=== PATIENT | male | born 1990 | race African-American/Black ===

== ENCOUNTER → 2019-04-17 | Emergency (ER) | payer MEDICAID | LOC: ER 15:10 ==

== ENCOUNTER 2019-07-16 08:21 | Emergency (ER) | payer MEDICAID ==
[~2019-07-16] VITALS: Ht 188 cm; Wt 88.0 kg
[~2019-07-16 08:21] MED LIST: AC325T PO; ACHD5005 PO; ALPR0.5T PO; AMOX500C2 PO; AMPH15TA PO; ATOM40CA3 PO; AZIT-21 PO; BENZ100C18 PO; CEFD300C16 PO; CEPH-507 PO; CEPH500C PO; CITA10TA70 PO; HYDR-2890 PO; HYDR-3720 PO; HYDR1TAB PO; IBUP-1780 PO; METH4TAB PO; NAPR-243 PO; SULF1TAB35 PO; TRAM50TA2 PO
[2019-07-16] MEDS ORDERED: KETOROLAC 30 MG/ML VIAL IM ONE (08:45)
[2019-07-16] MEDS ORDERED: LIDOCAINE 2% VISCOUS 15 ML UDC PO ONE (08:45)
--- NOTE | 2019-07-16 09:03 | ED EENT ---
History of Present Illness General Chief Complaint: Dental Problems/Pain Stated Complaint: DENTAL PAIN Nursing Triage Note: Pt c/o R upper dental pain. Pt reports broken tooth with an exposed nerve. Pt reports going to walk in clinic and was put on PCN. Pt reports trying to get an appointment with a dentist, but reports dentist will not see pt until pt has been on antibiotic for 72 hours. Pt reports today is third day on PCN. Pt reports taking tylenol and ibuporphen for pain. Pt requesting to have tooth pulled and pain shot. Source: patient Exam Limitations: no limitations History of Present Illness Date Seen by Provider: Jul 16, 2019 Time Seen by Provider: 08:40 Initial Comments This 29 year old young man presents to the ER with complaints of right upper dental pain he has multiple fractured and severely eroded teeth. He was seen recently at an urgent care clinic and was prescribed penicillin. He has not yet been seen by the dentist. He would like some help managing pain until he has follow-up with the dentist. He has tried anesthetic gel and ibuprofen. This has given him insufficient relief. He is specifically requesting an injection for pain. He denies fevers Allergies and Home Medications Allergies Coded Allergies: No Known Drug Allergies (Unverified , 01/10/12) Home Medications Alprazolam 0.5 Mg Tablet, 0.5 MG PO Q8H PRN for ANXIETY, (Reported) Amphet Asp/Amphet/D-Amphet 15 Mg Tablet, 15 MG PO DAILY, (Reported) Atomoxetine Hcl 40 Mg Capsule, 40 MG PO DAILY, (Reported) Cephalexin 500 Mg Capsule, 500 MG PO TID Prescribed by: TIFFANIE DOWNEY on 04/17/191558 Cephalexin Monohydrate 500 Mg Capsule, 1 EACH PO TID Prescribed by: STEPHAN TATE on 06/26/14 1636 Citalopram Hydrobromide 10 Mg Tablet, 30 MG PO DAILY, (Reported) Hydrocodone Bit/Acetaminophen 1 Tab Tab, 1 EACH PO Q4-6HR PRN for PAIN-MODERATE Prescribed by: TIFFANIE DOWNEY on 04/17/191558 Ibuprofen 800 Mg Tablet, 800 MG PO Q8H PRN for PAIN Prescribed by: TIFFANIE DOWNEY on 04/17/19 155 Naproxen 500 Mg Tablet, 1 EACH PO BID PRN for PAIN FOR PAIN Prescribed by: STEPHAN TATE on 06/26/14 1636 Sulfamethoxazole/Trimethoprim 1 Each Tablet, 1 EACH PO BID Prescribed by: TIFFANIE DOWNEY on 04/17/19 1559 Patient Home Medication List Home Medication List Reviewed: Yes Review of Systems Review of Systems Constitutional: no symptoms reported Eyes: No Symptoms Reported Ears: No Symptoms Reported Nose: no symptoms reported Mouth: see HPI Throat: no symptoms reported Respiratory: no symptoms reported Cardiovascular: no symptoms reported Gastrointestinal: no symptoms reported Musculoskeletal: no symptoms reported Skin: no symptoms reported Neurological: No Symptoms Reported Hematologic/Lymphatic: No Symptoms Reported Past Kbdtszy-Jvxtez-Uamgwl Hx Past Med/Social Hx: Reviewed Nursing Past Med/Soc Hx Patient Social History Alcohol Use: Denies Use Recreational Drug Use: Yes Drug of Choice: former maijuana, meth use Smoking Status: Former Smoker Type Used: Cigarettes 2nd Hand Smoke Exposure: No Recent Foreign Travel: No Contact w/Someone Who Travel: No Recent Infectious Disease Expo: No Recent Hopitalizations: No Physical Abuse: No Sexual Abuse: No Immunizations Up To Date Tetanus Booster (TDap): Less than 5yrs Date of Influenza Vaccine: Oct 13, 2013 Past Medical History Surgeries: Yes (L eye enucleation) Respiratory: No Cardiac: No Neurological: No Reproductive Disorders: No Gastrointestinal: No Musculoskeletal: No Endocrine: No 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 oz. 87.775298yg; BMI Method:Stated General Appearance: WD/WN, no apparent distress Eyes: right eye normal inspection; left eye other (absent) Ears: bilateral ear auricle normal, bilateral ear canal normal, bilateral ear TM normal Nose: normal inspection Mouth/Throat: pharynx normal, other (multiple chipped and severely eroded teeth with some tenderness in the right upper premolars. 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, no motor/sensory deficits, alert, normal mood/affect, oriented x 3 Skin: normal color, warm/dry Progress/Results/Core Measures Results/Orders My Orders Orders - QUANG DIALLO MD Ketorolac Injection (Toradol Injection) (07/16/19 08:45) Lidocaine 2% Viscous 15 Ml (Xylocaine Vi (07/16/19 08:45) Medications Given in ED Current Medications Medications Dose Ordered Sig/Zhanna Route Start Time Stop Time Status Last Admin Dose Admin Ketorolac Tromethamine 30 mg ONCE ONCE IM 07/16/19 08:45 07/16/19 08:46 DC 07/16/19 08:56 30 MG Lidocaine HCl 5 ml ONCE ONCE PO 07/16/19 08:45 07/16/19 08:46 DC 07/16/19 08:55 5 ML Vital Signs/I&O 07/16/19 07/16/19 08:28 09:15 Temp 98.1 98.1 Pulse 85 85 Resp 18 18 B/P (MAP) 153/102 (119) 148/84 (105) Pulse Ox 100 100 O2 Delivery Room Air Room Air Blood Pressure Mean: 119 Progress Progress Note : Progress Note She received a Toradol injection. Anesthetic gauze pads were prepared and dispensed. Cautions regarding gauze pad use were given. Departure Impression Primary Impression: Pain, dental Additional Impressions: Dental decay Tooth fracture Qualified Codes: S02.5XXA - Fracture of tooth (traumatic), initial encounter for closed fracture Disposition: 01 HOME, SELF-CARE Condition: Improved Departure-Patient Inst. Decision time for Depature: 08:59 Referrals: NO,LOCAL PHYSICIAN (PCP/Family) Primary Care Physician Patient Instructions: Fractured Tooth (DC), Tooth Decay, Adult, Dental Pain Add. Discharge Instructions: Complete your antibiotics as prescribed and follow-up with a dentist as soon as possible. For pain you may take ibuprofen up to 600 mg every 6 hours and Tylenol (acetaminophen) up to 1000 mg every 6 hours as needed. You may also use the anesthetic gauze pads as needed. Please use anesthetic gauze pads with caution as they will numb your mouth, tongue, and throat. Eat and drink very carefully after use. DO NOT FALL ASLEEP WITH GAUZE PADS IN YOUR MOUTH as doing so be a choking risk. Return to care if you have worsening symptoms, especially if you develop fevers over 100. Pressure or teeth gently with a soft bristle toothbrush at least twice daily. All discharge instructions reviewed with patient and/or family. Voiced understanding. QUANG DIALLO MD Jul 16, 2019 09:03
[2019-07-16 09:15] VITALS: BP 148/84
== END 2019-07-16 09:15 | disposition home or self-care (01) ==
LOC: EDUNIT# 08:21 → ER 08:22
DX: S02.5XXA Fracture of tooth (traumatic), initial encounter for closed fracture (principal); K02.9 Dental caries, unspecified; Z87.891 Personal history of nicotine dependence; X58.XXXA Exposure to other specified factors, initial encounter
CPT/HCPCS: 99283

== ENCOUNTER 2021-09-25 06:53 | Emergency (ER) | payer MEDICAID ==
[~2021-09-25] VITALS: Ht 187 cm; Wt 90.0 kg
[2021-09-25 06:53] VITALS: BP_DIAS 106
[~2021-09-25 06:53] MED LIST changes: -SULF1TAB35 PO; +SULF1TAB38 PO
--- NOTE | 2021-09-25 07:17 | ED Psychosocial ---
General Chief Complaint: Overdose Stated Complaint: DETOX Nursing Triage Note: ARRIVED VIA EMS FROM [facility]. PT IS WANTING DETOXED FROM METH WHICH HE SMOKES. PT CONCERNED ABOUT A SUBSTANCE IN HIS WATTER BOTTLE. Source: patient Exam Limitations: no limitations History of Present Illness Date Seen by Provider: Sep 25, 2021 Time Seen by Provider: 07:03 Initial Comments Patient is a 31-year-old male who presents to the emergency department by EMS desiring "detox". Patient states he has had issues with smoking methamphetamine and using marijuana for years. He has been through rehab multiple times. He states he last attended rehab 2 to 3 years ago in [place]. States that he has been using now for "a while". States last use was about 3 to 4 hours ago. He states that he does not have a safe place to go and would like detox. He denies any recent illnesses such as fever, chills, cough or congestion. No abdominal pain, GI or symptoms. He presents with a water bottle in his possession and is concerned that somebody might of "put something in it". He would like to be tested for any substances. He denies suicidal or homicidal ideation. He denies auditory and visual hallucinations. He states he ran out of his medications recently and lists for five different ones. He has a provider through [facility]. Patient states that he was under the impression that our facility would provide detox/rehabilitative services. I advised him the closest facility was [facility]. I offered to call and see with their intake required. He seems agreeable. Patient does not appear acutely intoxicated. He was found outside at [place] this morning by police and brought in by EMS. All other review of systems reviewed and negative except as stated. Timing/Duration: getting worse Severity: moderate Associated Symptoms: anxiety, other (paranoia) Allergies and Home Medications Allergies Coded Allergies: No Known Drug Allergies (Unverified , 01/10/12) Patient Home Medication List Home Medication List Reviewed: Yes Alprazolam (Xanax) 0.5 Mg Tablet, 0.5 MG PO Q8H PRN for ANXIETY, (Reported) Entered as Reported by: RAFA CHEEMA on 12/10/13 0200 Amphet Asp/Amphet/D-Amphet (Adderall 15 Mg Tablet) 15 Mg Tablet, 15 MG PO DAILY, (Reported) Entered as Reported by: CAROL CASTILLO on 06/26/14 1621 Atomoxetine Hcl (Strattera) 40 Mg Capsule, 40 MG PO DAILY, (Reported) Entered as Reported by: CAROL CASTILLO on 06/26/14 1621 Cephalexin (Keflex) 500 Mg Capsule, 500 MG PO TID Prescribed by: TIFFANIE DOWNEY on 04/17/19 155 Cephalexin Monohydrate (Cephalexin) 500 Mg Capsule, 1 EACH PO TID Prescribed by: STEPHAN TATE on 06/26/14 1636 Citalopram Hydrobromide (Celexa) 10 Mg Tablet, 30 MG PO DAILY, (Reported) Entered as Reported by: BAILEY NAYAK on 07/17/13 0737 Hydrocodone Bit/Acetaminophen (Lortab 5 Mg Tablet) 1 Tab Tab, 1 EACH PO Q4-6HR PRN for PAIN-MODERATE Prescribed by: TIFFANIE DOWNEY on 04/17/19 155 Ibuprofen (Ibuprofen) 800 Mg Tablet, 800 MG PO Q8H PRN for PAIN Prescribed by: TIFFANIE DOWNEY on 04/17/19 155 Naproxen (Naprosyn) 500 Mg Tablet, 1 EACH PO BID PRN for PAIN Prescribed by: STEPHAN TATE on 06/26/14 1636 Sulfamethoxazole/Trimethoprim (Bactrim Ds Tablet) 1 Each Tablet, 1 EACH PO BID Prescribed by: TIFFANIE DOWNEY on 04/17/191558 Review of Systems Constitutional: see HPI EENTM: no symptoms reported Respiratory: no symptoms reported Cardiovascular: no symptoms reported Gastrointestinal: no symptoms reported Genitourinary: no symptoms reported Musculoskeletal: no symptoms reported Skin: no symptoms reported Psychiatric/Neurological: Anxiety, Emotional Problems All Other Systems Reviewed Negative Unless Noted: Yes Past Ljrmqwy-Utenjr-Cklcgu Hx Patient Social History Smoking Status: Current Everyday Smoker Substance use?: Yes Substance type: Methamphetamine, Marijuana Alcohol Use?: No Immunizations Up To Date Tetanus Booster (TDap): Less than 5yrs Second COVID19 Vaccination Jamel: YES- UNKNONWN COVID19 Vaccine 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 oz. 87.900380ml; 25.00 BMI Method:Stated General Appearance: WD/WN, no apparent distress HEENT: PERRL/EOMI Neck: full range of motion Respiratory: lungs clear, normal breath sounds, no respiratory distress, no accessory muscle use Cardiovascular: regular rate, rhythm, tachycardia Extremities: normal range of motion, normal inspection Neurologic/Psychiatric: no motor/sensory deficits, alert, normal mood/affect, oriented x 3 Appearance/Memory: appropriate appearance, appropriate insight, neat, no memory impairment Behavior/Eye Contact: cooperative, good eye contact, normal speech Thoughts/Hallucinations: normal thought pattern, other (paranoid that someone has "put something in his water bottle" and "would like it tested") Progress/Results/Core Measures Results/Orders Lab Results Laboratory Tests Test 09/25/21 07:07 Range/Units Urine Opiates Screen NEGATIVE NEGATIVE Urine Oxycodone Screen NEGATIVE NEGATIVE Urine Methadone Screen NEGATIVE NEGATIVE Urine Propoxyphene Screen NEGATIVE NEGATIVE Urine Barbiturates Screen NEGATIVE NEGATIVE Ur Tricyclic Antidepressants Screen NEGATIVE NEGATIVE Urine Phencyclidine Screen NEGATIVE NEGATIVE Urine Amphetamines Screen POSITIVE H NEGATIVE Urine Methamphetamines Screen POSITIVE H NEGATIVE Urine Benzodiazepines Screen NEGATIVE NEGATIVE Urine Cocaine Screen NEGATIVE NEGATIVE Urine Cannabinoids Screen POSITIVE H NEGATIVE My Orders Orders - DAMARIS GARCIA MD Drug Screen Stat (Urine) (09/25/21 07:11) General/Regular (09/25/21 Breakfast) Vital Signs/I&O 09/25/21 06:53 Temp 37.2 Pulse 117 Resp 16 B/P (MAP) 138/106 (117) Pulse Ox 99 O2 Delivery Room Air Blood Pressure Mean: 117 Progress Progress Note : Time: 07:20 Progress Note I called and spoke with a lady (Mile) at [facility] about criteria for e ntering "detox" through [facility], She advised me that Olivia would have to call the main office at [facility] ([phone]) to get a Drug and Alcohol assessment in order to be assessed for detox treatment. They do not accept patients directly from the ED. Patient denies and SI of HI and denies any acute psychotic symptomatology. I do not believe that he has any criteria that would meet indications for acute psych eval or placement. He has no medical emergencies at this time. Patient has had a urine drug screen. He is given a meal tray. No clinical or objective findings to require further evaluation at this time. He is, again, not actively psychotic. Not homicidal or suicidal. Departure Impression Primary Impression: Methamphetamine use Disposition: 01 HOME, SELF-CARE Condition: Stable Departure-Patient Inst. Decision time for Depature: 07:33 Referrals: [facility] CARLOS,LOCAL PHYSICIAN (PCP) Primary Care Physician Patient Instructions: ALCOHOL AND SUBSTANCE ABUSE Add. Discharge Instructions: You will need to call [facility] at [phone] for an alcohol/substance use intake appointment to be screened for meth detox. We do not do drug detox here at the hospital. You also need to follow up with [facility] for evaluation and to get your psychiatric medications refilled. [address] [place] [address] If you have any other new, concerning or emergent symptoms, please come back to the Emergency Department to be re-evaluated. DAMARIS GARCIA MD Sep 25, 2021 07:17
[2021-09-25 07:28] LABS: AMPHETAMINE SCREEN, URINE POSITIVE (NEGATIVE); BARBITURATE SCREEN URINE NEGATIVE (NEGATIVE); BENZODIAZEPINES SCREEN URINE NEGATIVE (NEGATIVE); CANNABINOID SCREEN, URINE POSITIVE (NEGATIVE); COCAINE SCREEN URINE NEGATIVE (NEGATIVE); METHADONE STAT NEGATIVE (NEGATIVE); METHAMPHETAMINE SCREEN URINE S POSITIVE (NEGATIVE); OPIATE SCREEN URINE NEGATIVE (NEGATIVE); OXYCODONE STAT NEGATIVE (NEGATIVE); PROPOXYPHENE STAT NEGATIVE (NEGATIVE); TRICYCLIC ANTIDEPRESSANTS SCRE NEGATIVE (NEGATIVE)
[2021-09-25 08:03] VITALS: BP_SYST 109
== END 2021-09-25 08:03 | disposition home or self-care (01) ==
LOC: EDUNIT# 06:53 → ER 06:55
DX: F15.90 Other stimulant use, unspecified, uncomplicated (principal); F17.200 Nicotine dependence, unspecified, uncomplicated
CPT/HCPCS: 80306; 99283

== ENCOUNTER 2021-09-30 18:40 | Observation (INO) | payer MEDICAID ==
[~2021-09-30] VITALS: Ht 182.8 cm; Wt 90.1 kg
[2021-09-30] MEDS ORDERED: NS IV 1000 ML 1,000 ML IV SCH ×2 (19:00→19:30)
[2021-09-30 19:23] LABS: BASOPHILS % (AUTO) 0 % (0-10); EOSINOPHILS # (AUTO) 0.1 10^3/uL (0.0-0.3); EOSINOPHILS % (AUTO) 1 % (0-10); HEMATOCRIT 36 % (40-54); HEMOGLOBIN 12.7 g/dL (13.3-17.7); LYMPHOCYTES # (AUTO) 1.8 10^3/uL (1.0-4.0); LYMPHOCYTES % (AUTO) 17 % (12-44); MEAN CORPUSCULAR HEMOGLOBIN 30 pg (25-34); MEAN CORPUSCULAR HGB CONC 35 g/dL (32-36); MEAN CORPUSCULAR VOLUME 85 fL (80-99); MEAN PLATELET VOLUME 9.3 fL (9.0-12.2); MONOCYTES # (AUTO) 0.9 10^3/uL (0.0-1.0); MONOCYTES % (AUTO) 8 % (0-12); NEUTROPHILS # (AUTO) 7.6 10^3/uL (1.8-7.8); NEUTROPHILS % (AUTO) 73 % (42-75); PLATELET COUNT 259 10^3/uL (130-400); WHITE BLOOD COUNT 10.4 10^3/uL (4.3-11.0)
[2021-09-30] MEDS ORDERED: NS IV 1000 ML 1,000 ML ONE (19:32)
[2021-09-30 19:38] LABS: ALANINE AMINOTRANSFERASE 78 U/L (0-55); ALBUMIN 4.2 GM/DL (3.2-4.5); ALKALINE PHOSPHATASE 45 U/L (40-136); BILIRUBIN,TOTAL 0.5 MG/DL (0.1-1.0); BUN/CREATININE RATIO 15; CALCIUM 9.1 MG/DL (8.5-10.1); CARBON DIOXIDE 19 MMOL/L (21-32); CHLORIDE 107 MMOL/L (98-107); CREATININE SERUM 1.02 MG/DL (0.60-1.30); GFR ESTIMATED 104; GLUCOSE 88 MG/DL (70-105); POTASSIUM 3.9 MMOL/L (3.6-5.0); SALICYLATE < 5.0 MG/DL (5.0-20.0); SODIUM 139 MMOL/L (135-145); TOTAL PROTEIN 6.8 GM/DL (6.4-8.2)
[2021-09-30 19:40] LABS: ACETAMINOPHEN < 10 UG/ML (10-30)
--- NOTE | 2021-09-30 20:08 | Diagnostic Imaging Report ---
PROCEDURE: CT head without contrast. TECHNIQUE: Multiple contiguous axial images were obtained through the brain without the use of intravenous contrast. Auto Exposure Controls were utilized during the CT exam to meet ALARA standards for radiation dose reduction. INDICATION: Altered mental status. COMPARISON: 12/10/2013. FINDINGS: No intracranial hemorrhage, mass effect, hydrocephalus or extra-axial fluid collection. No CT evidence of a territorial infarction. Osseous structures are intact. Mild mucosal thickening in the right ethmoid sinuses. The mastoids are clear. Left globe prosthesis. IMPRESSION: No acute intracranial CT finding. Dictated by: Dictated on workstation # [id number]
--- NOTE | 2021-09-30 20:23 | ED General ---
General Chief Complaint: Altered Mental Status Stated Complaint: AMS Nursing Triage Note: Pt arrival to ER via EMS with complaint of altered mental status/confusion. EMS was called to [facility] area for patient acting strangly by PD. Pt able to give name and , but answers everything else as I dont really know. Pt denies pain. No other information given. History of Present Illness Date Seen by Provider: Sep 30, 2021 Time Seen by Provider: 18:45 Initial Comments 31-year-old male presents via EMS after being found on the side of the road with altered mental status. The patient states that he has been walking for 4 weeks. He is unable to state where he is coming from or where he is going. Patient continually reports "I do not know" or "I can't remember". He was evaluated in this ED 5 days ago, wanted to start Rehab for drug addictions. At that time, his only positive was cannabinoids on urine drug screen. He was discharged and referred to drug alcohol treatment center. He can answer math questions, knows his full name and date of , the year and season. Unsure of the present month. Reports his mouth is dry. Denies using drugs. He doesn't know why he is out walking. Denies any pain. He is cooperative. He has history of bipolar disorder and drug addictions. He told EMS, he wasn't telling them any history because he isn't a snitch. He never stated that during ED Stay. Associated Systoms: Denies Symptoms Allergies and Home Medications Allergies Coded Allergies: No Known Drug Allergies (Unverified , 01/10/12) Patient Home Medication List Home Medication List Reviewed: Yes Alprazolam (Xanax) 0.5 Mg Tablet, 0.5 MG PO Q8H PRN for ANXIETY, (Reported) Entered as Reported by: RAFA CHEEMA on 12/10/13 0200 Amphet Asp/Amphet/D-Amphet (Adderall 15 Mg Tablet) 15 Mg Tablet, 15 MG PO DAILY, (Reported) Entered as Reported by: CAROL CASTILLO on 06/26/14 1621 Atomoxetine Hcl (Strattera) 40 Mg Capsule, 40 MG PO DAILY, (Reported) Entered as Reported by: CAROL CASTILLO on 06/26/14 1621 Cephalexin (Keflex) 500 Mg Capsule, 500 MG PO TID Prescribed by: TIFFANIE DOWNEY on 04/17/191558 Cephalexin Monohydrate (Cephalexin) 500 Mg Capsule, 1 EACH PO TID Prescribed by: STEPHAN TATE on 06/26/14 163 Citalopram Hydrobromide (Celexa) 10 Mg Tablet, 30 MG PO DAILY, (Reported) Entered as Reported by: BAILEY NAYAK on 07/17/13 0737 Hydrocodone Bit/Acetaminophen (Lortab 5 Mg Tablet) 1 Tab Tab, 1 EACH PO Q4-6HR PRN for PAIN-MODERATE Prescribed by: TIFFANEI DOWNEY on 04/17/191558 Ibuprofen (Ibuprofen) 800 Mg Tablet, 800 MG PO Q8H PRN for PAIN Prescribed by: TIFFANIE DOWNEY on 04/17/191557 Naproxen (Naprosyn) 500 Mg Tablet, 1 EACH PO BID PRN for PAIN Prescribed by: STEPHAN TATE on 06/26/14 163 Sulfamethoxazole/Trimethoprim (Bactrim Ds Tablet) 1 Each Tablet, 1 EACH PO BID Prescribed by: TIFFANIE DOWNEY on 04/17/191558 Review of Systems Review of Systems Constitutional: no symptoms reported, see HPI EENTM: see HPI, no symptoms reported Respiratory: no symptoms reported, see HPI Cardiovascular: no symptoms reported, see HPI Gastrointestinal: no symptoms reported, see HPI Genitourinary: no symptoms reported, see HPI Musculoskeletal: no symptoms reported, see HPI Skin: no symptoms reported, see HPI Psychiatric/Neurological: See HPI; Denies Headache, Denies Numbness, Denies Paresthesia, Denies Seizure; Other (Confusion) All Other Systems Reviewed Negative Unless Noted: Yes Past Ejnjlfh-Iqdyoq-Uimypk Hx Patient Social History Tobacco Use?: No Use of E-Cig and/or Vaping dev: No Substance use?: Yes Substance type: Methamphetamine Alcohol Use?: No Pt feels they are or have been: No Immunizations Up To Date Tetanus Booster (TDap): Less than 5yrs Influenza Vaccine Up-to-Date: No; Not Current First/Initial COVID19 Vaccinat: YES- UNKNONWN Second COVID19 Vaccination Jamel: YES- UNKNONWN Third COVID19 Vaccination Date: YES- UNKNONWN Past Medical History Surgeries: Yes (L eye enucleation) Respiratory: No Cardiac: No Neurological: No Reproductive Disorders: No Gastrointestinal: No Musculoskeletal: No Endocrine: No 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 oz. 87.251159gx; 28.00 BMI Method:Stated General Appearance: No Apparent Distress, WD/WN, Mild Distress (secondary to AMS) HEENT: PERRL/EOMI, TMs Normal, Normal ENT Inspection, Pharynx Normal, Other (oral mucosa pink and moist) Neck: Full Range of Motion, Normal Inspection, Non Tender, Supple Respiratory: Chest Non Tender, Lungs Clear, Normal Breath Sounds Cardiovascular: Regular Rate, Rhythm, No Edema, No Murmur, Normal Peripheral Pulses Gastrointestinal: Normal Bowel Sounds, Non Tender, Soft Back: Normal Inspection, No CVA Tenderness, No Vertebral Tenderness Extremity: Normal Capillary Refill, Normal Inspection, Normal Range of Motion Neurologic/Psychiatric: Alert, No Motor/Sensory Deficits, Normal Mood/Affect Skin: Normal Color, Warm/Dry Comments no tremors or tweaking noted. Progress/Results/Core Measures Suspected Sepsis SIRS Temperature: Pulse: 99 Respiratory Rate: 24 Laboratory Tests 09/30/21 19:10: White Blood Count 10.4 Blood Pressure 178 /101 Mean: 126 Laboratory Tests 09/30/21 19:10: Creatinine 1.02, Platelet Count 259, Total Bilirubin 0.5 Results/Orders Lab Results Laboratory Tests Test 09/30/21 19:10 09/30/21 21:03 Range/Units White Blood Count 10.4 4.3-11.0 10^3/uL Red Blood Count 4.29 L 4.30-5.52 10^6/uL Hemoglobin 12.7 L 13.3-17.7 g/dL Hematocrit 36 L 40-54 % Mean Corpuscular Volume 85 80-99 fL Mean Corpuscular Hemoglobin 30 25-34 pg Mean Corpuscular Hemoglobin Concent 35 32-36 g/dL Red Cell Distribution Width 12.6 10.0-14.5 % Platelet Count 259 130-400 10^3/uL Mean Platelet Volume 9.3 9.0-12.2 fL Immature Granulocyte % (Auto) 0 % Neutrophils (%) (Auto) 73 42-75 % Lymphocytes (%) (Auto) 17 12-44 % Monocytes (%) (Auto) 8 0-12 % Eosinophils (%) (Auto) 1 0-10 % Basophils (%) (Auto) 0 0-10 % Neutrophils # (Auto) 7.6 1.8-7.8 10^3/uL Lymphocytes # (Auto) 1.8 1.0-4.0 10^3/uL Monocytes # (Auto) 0.9 0.0-1.0 10^3/uL Eosinophils # (Auto) 0.1 0.0-0.3 10^3/uL Basophils # (Auto) 0.0 0.0-0.1 10^3/uL Immature Granulocyte # (Auto) 0.0 0.0-0.1 10^3/uL Sodium Level 139 135-145 MMOL/L Potassium Level 3.9 3.6-5.0 MMOL/L Chloride Level 107 98-107 MMOL/L Carbon Dioxide Level 19 L 21-32 MMOL/L Anion Gap 13 5-14 MMOL/L Blood Urea Nitrogen 15 7-18 MG/DL Creatinine 1.02 0.60-1.30 MG/DL Estimat Glomerular Filtration Rate 104 BUN/Creatinine Ratio 15 Glucose Level 88 70-105 MG/DL Calcium Level 9.1 8.5-10.1 MG/DL Corrected Calcium 8.9 8.5-10.1 MG/DL Total Bilirubin 0.5 0.1-1.0 MG/DL Aspartate Amino Transf (AST/SGOT) 135 H 5-34 U/L Alanine Aminotransferase (ALT/SGPT) 78 H 0-55 U/L Alkaline Phosphatase 45 40-136 U/L Total Protein 6.8 6.4-8.2 GM/DL Albumin 4.2 3.2-4.5 GM/DL Salicylates Level < 5.0 L 5.0-20.0 MG/DL Acetaminophen Level < 10 L 10-30 UG/ML Serum Alcohol < 10 <10 MG/DL Urine Color YELLOW Urine Clarity CLEAR Urine pH 6.0 5-9 Urine Specific [place] >=1.030 1.016-1.022 Urine Protein NEGATIVE NEGATIVE Urine Glucose (UA) NEGATIVE NEGATIVE Urine Ketones NEGATIVE NEGATIVE Urine Nitrite NEGATIVE NEGATIVE Urine Bilirubin NEGATIVE NEGATIVE Urine Urobilinogen 1.0 < = 1.0 MG/DL Urine Leukocyte Esterase TRACE H NEGATIVE Urine RBC (Auto) TRACE-I H NEGATIVE Urine RBC 2-5 H /HPF Urine WBC 10-25 H /HPF Urine Squamous Epithelial Cells NONE /HPF Urine Renal Epithelial Cells NONE /HPF Urine Crystals NONE /LPF Urine Bacteria NEGATIVE /HPF Urine Casts NONE /LPF Urine Mucus SMALL H /LPF Urine Culture Indicated NO Urine Opiates Screen NEGATIVE NEGATIVE Urine Oxycodone Screen NEGATIVE NEGATIVE Urine Methadone Screen NEGATIVE NEGATIVE Urine Propoxyphene Screen NEGATIVE NEGATIVE Urine Barbiturates Screen NEGATIVE NEGATIVE Ur Tricyclic Antidepressants Screen NEGATIVE NEGATIVE Urine Phencyclidine Screen NEGATIVE NEGATIVE Urine Amphetamines Screen POSITIVE H NEGATIVE Urine Methamphetamines Screen POSITIVE H NEGATIVE Urine Benzodiazepines Screen NEGATIVE NEGATIVE Urine Cocaine Screen NEGATIVE NEGATIVE Urine Cannabinoids Screen POSITIVE H NEGATIVE My Orders Orders - BAILEY LONGORIA CHURCH ADMINISTRATOR Ct Head Wo (09/30/21 18:52) Cbc With Automated Diff (09/30/21 18:52) Comprehensive Metabolic Panel (09/30/21 18:52) Alcohol (09/30/21 18:52) Acetaminophen (09/30/21 18:52) Salicylate (09/30/21 18:52) Ekg Tracing (09/30/21 18:52) Ed Iv/Invasive Line Start (09/30/21 18:52) Bh Status Checks/Observation Q15M (09/30/21 18:52) Ed Iv/Invasive Line Start (09/30/21 18:52) Ns Iv 1000 Ml (Sodium Chloride 0.9%) (09/30/21 19:00) General/Regular (09/30/21 Dinner) Ed Iv/Invasive Line Start (09/30/21 19:30) Ns Iv 1000 Ml (Sodium Chloride 0.9%) (09/30/21 19:30) Ns Iv 1000 Ml (Sodium Chloride 0.9%) (09/30/21 19:32) Drug Screen Stat (Urine) (09/30/21 20:21) Ua Culture If Indicated (09/30/21 20:21) Drug Screen Blood Comprehensiv (09/30/21 21:14) Drug Screen Urine Cl(Send Out) (09/30/21 21:14) Vital Signs/I&O 09/30/21 18:45 Temp 36.0 Pulse 99 Resp 24 B/P (MAP) 178/101 (126) Pulse Ox 98 O2 Delivery Room Air Capillary Refill : Less Than 3 Seconds Blood Pressure Mean: 126 Progress Note : Time: 18:45 Progress Note patient seen and evaluated, will obtain labs and CT head. 1929 patient sleeping, easily arousable but continues to state "I don't know" when questioned. 2014 patient resting, eyes closed, VS stable. Easily arousable and states where he is and his name. No family or friends to d/c patient to. 2099 plan to admit for acute meth intoxication, spoke to Dr. Newton, agreeable with plan. 2199 patient admitted to 4th floor, will have social work arrange plans for d/c. He remained stable through ED visit. No acute abnormalities on labs or CT. ECG Initial ECG Impression Date: Sep 30, 2021 Initial ECG Impression Time: 19:04 Initial ECG Rate: 87 Initial ECG Rhythm: Normal Sinus Initial ECG Intervals: Normal Initial ECG Intervals MI 142, QRSD 80, QT 368, QTc 443. [place] P 74, QRS 70, T 74 Initial ECG Impression: Normal Initial ECG Comparisson: Unchanged Diagnostic Imaging Diagonstic Imaging: CT Plain Films/CT/US/NM/MRI: head Comments NAME: LSISETT ZAYAS MED REC#: [id number] PT STATUS: REG ER : 1990 PHYSICIAN: BAILEY LONGORIA ADMIT DATE: 09/30/21/ER Signed Date of Exam:09/30/21 CT HEAD WO PROCEDURE: CT head without contrast. TECHNIQUE: Multiple contiguous axial images were obtained through the brain without the use of intravenous contrast. Auto Exposure Controls were utilized during the CT exam to meet ALARA standards for radiation dose reduction. INDICATION: Altered mental status. COMPARISON: 12/10/2013. FINDINGS: No intracranial hemorrhage, mass effect, hydrocephalus or extra-axial fluid collection. No CT evidence of a territorial infarction. Osseous structures are intact. Mild mucosal thickening in the right ethmoid sinuses. The mastoids are clear. Left globe prosthesis. IMPRESSION: No acute intracranial CT finding. Dictated by: Dictated on workstation # [id number] Dict: 09/30/212002 Trans: 09/30/212009 [facility] [id number] Interpreted by: TINA CHAO MD Electronically signed by: TINA CHAO MD 09/30/212009 Reviewed: Reviewed by Me Departure Impression Primary Impression: Altered mental status Qualified Codes: R41.82 - Altered mental status, unspecified Additional Impression: Methamphetamine use Disposition: ADMITTED INPATIENT Condition: Stable Admissions Decision to Admit Reason: Admit from ER (General) Decision to Admit/Date: Sep 30, 2021 Time/Decision to Admit Time: 21:00 Departure-Patient Inst. Referrals: NO,LOCAL PHYSICIAN (PCP/Family) Primary Care Physician BAILEY LONGORIA Sep 30, 2021 20:23
[2021-09-30 21:09] LABS: BILIRUBIN,URINE NEGATIVE (NEGATIVE); CLARITY,URINE CLEAR; COLOR,URINE YELLOW; GLUCOSE, URINE (UA) NEGATIVE (NEGATIVE); KETONES,URINE NEGATIVE (NEGATIVE); LEUKOCYTE ESTERASE ,URINE TRACE (NEGATIVE); NITRITE,URINE NEGATIVE (NEGATIVE); PROTEIN,URINE NEGATIVE (NEGATIVE)
[2021-09-30 21:18] LABS: BACTERIA,URINE NEGATIVE /HPF
[2021-09-30 21:28] LABS: AMPHETAMINE SCREEN, URINE POSITIVE (NEGATIVE); BARBITURATE SCREEN URINE NEGATIVE (NEGATIVE); BENZODIAZEPINES SCREEN URINE NEGATIVE (NEGATIVE); CANNABINOID SCREEN, URINE POSITIVE (NEGATIVE); COCAINE SCREEN URINE NEGATIVE (NEGATIVE); METHAMPHETAMINE SCREEN URINE S POSITIVE (NEGATIVE); OPIATE SCREEN URINE NEGATIVE (NEGATIVE); TRICYCLIC ANTIDEPRESSANTS SCRE NEGATIVE (NEGATIVE)
[2021-09-30 21:29] LABS: METHADONE STAT NEGATIVE (NEGATIVE); OXYCODONE STAT NEGATIVE (NEGATIVE); PROPOXYPHENE STAT NEGATIVE (NEGATIVE)
[2021-10-01] VITALS: BP 138/80
[2021-10-01] MEDS ORDERED: LORazepam INJ 2 MG/ML (ATIVAN) VIAL IV PRN (00:15)
[2021-10-01] MEDS ORDERED: ONDANSETRON 4 MG/2 ML (SDV) Z0FRAN IV PRN (00:15)
[2021-10-01] MEDS ORDERED: ACETAMINOPHEN 325 MG TABLET PO PRN (00:15)
[2021-10-01 04:16] VITALS: BP 121/76
[2021-10-01] MEDS: NS IV 1000 ML 1,000 ML IV SCH ×2 (05:59→13:35)
[2021-10-01 06:11] LABS: BASOPHILS % (AUTO) 1 % (0-10); EOSINOPHILS # (AUTO) 0.1 10^3/uL (0.0-0.3); EOSINOPHILS % (AUTO) 2 % (0-10); HEMATOCRIT 40 % (40-54); HEMOGLOBIN 13.6 g/dL (13.3-17.7); LYMPHOCYTES # (AUTO) 1.4 10^3/uL (1.0-4.0); LYMPHOCYTES % (AUTO) 21 % (12-44); MEAN CORPUSCULAR HEMOGLOBIN 30 pg (25-34); MEAN CORPUSCULAR HGB CONC 34 g/dL (32-36); MEAN CORPUSCULAR VOLUME 86 fL (80-99); MEAN PLATELET VOLUME 9.3 fL (9.0-12.2); MONOCYTES # (AUTO) 0.6 10^3/uL (0.0-1.0); MONOCYTES % (AUTO) 9 % (0-12); NEUTROPHILS # (AUTO) 4.6 10^3/uL (1.8-7.8); NEUTROPHILS % (AUTO) 67 % (42-75); PLATELET COUNT 241 10^3/uL (130-400); WHITE BLOOD COUNT 6.9 10^3/uL (4.3-11.0)
[2021-10-01 06:34] LABS: CREATININE SERUM 0.81 MG/DL (0.60-1.30); POTASSIUM 4.2 MMOL/L (3.6-5.0)
[2021-10-01 08:50] VITALS: BP 134/67
--- NOTE | 2021-10-01 10:56 | Discharge Inst-Simple/Standard ---
Discharge Inst-Standard Patient Instructions/Follow Up Plan of Care/Instructions/FU: Please continue to take your medications as written. Please follow-up with Juliane Barragan as scheduled to follow-up this hospital stay. Please quit using meth. Activity as Tolerated: Yes Discharge Diet: No Restrictions Return to The Hospital For: Chest pain, shortness of breath, confusion, fever, if you feel you are getting worse. JOBY GAO MD Oct 01, 2021 10:56
[2021-10-01] MEDS ORDERED: TMSL.4C PO (11:35)
[2021-10-01] MEDS ORDERED: TAMSULOSIN 0.4 MG (FLOMAX) CAP PO SCH (11:45)
--- NOTE | 2021-10-01 11:45 | Short Stay Summary-Hospitalist ---
History of Present Illness HPI/Chief Complaint Patient is a 31-year-old -[place] male who presented to the emergency department due to altered mental status. He was brought in by the police department as he was found confused. He was able to tell the emergency department his name and date of only. Urine drug screen was obtained and was positive for methamphetamine and marijuana. CT head was negative for acute findings. Otherwise labs were unremarkable. He was observed overnight and did well. He is now alert and oriented x4. He was able to tell me that he smoked meth and does not remember much of yesterday. He was able to eat breakfast and tolerated it well. Date Seen 10/01/21 Time Seen by a Provider: 10:45 Attending Physician Joby Newton MD PCP No,Local Physician Referring Physician Date of Admission Sep 30, 2021 at 22:30 Home Medications & Allergies Home Medications Reviewed patient Home Medication Reconciliation performed by pharmacy medication reconciliations clinical pharmacy technician and/or nursing. Patients Allergies have been reviewed. Allergies Allergies Coded Allergies No Known Drug Allergies (Unverified01/10/12) Past Fdyhhjp-Wtbzmf-Tlixpk Hx Patient Social History Marrital Status: single Employed/Student: unemployed Tobacco Use?: No Use of E-Cig and/or Vaping dev: No Substance use?: Yes Substance type: Amphetamines, Marijuana Alcohol Use?: No Pt feels they are or have been: No Immunizations Up To Date Date of Influenza Vaccine: Oct 13, 2013 First/Initial COVID19 Vaccinat: Unknown Second COVID19 Vaccination Jamel: Unknown Tetanus Booster (TDap): Unknown Current Status Advance Directives: Unable to obtain Primary Language: Eritrean Preferred Spoken Language: Eritrean Implanted or Applied Medical D: None Past Medical History Eye Injury Blood Disorders: No Family Medical History Reviewed Nursing Family Hx No Pertinent Family Hx Review of Systems Constitutional: no symptoms reported EENTM: no symptoms reported Respiratory: no symptoms reported Cardiovascular: no symptoms reported Gastrointestinal: no symptoms reported Genitourinary: no symptoms reported Musculoskeletal: no symptoms reported Skin: no symptoms reported Psychiatric/Neurological: See HPI Physical Exam Physical Exam Vital Signs Vital Signs - First Documented 09/30/21 18:45 Temp 36.0 Pulse 99 Resp 24 B/P (MAP) 178/101 (126) Pulse Ox 98 O2 Delivery Room Air Capillary Refill : Less Than 3 Seconds Height, Weight, BMI Height: 6'2.00" Weight: 194lbs. oz. 87.062926kp; 28.42 BMI Method:Stated General Appearance: No Apparent Distress, WD/WN HEENT: PERRL/EOMI, Moist Mucous Membranes; No Scleral Icterus (L), No Scleral Icterus (R); Other (oral mucosa pink and moist) Neck: Normal Inspection, Supple Respiratory: Lungs Clear, No Accessory Muscle Use, No Respiratory Distress Cardiovascular: Regular Rate, Rhythm, No Edema, No Murmur, Normal Peripheral Pulses Gastrointestinal: Normal Bowel Sounds, Non Tender, Soft Back: Normal Inspection, No CVA Tenderness, No Vertebral Tenderness Extremity: Normal Capillary Refill, Normal Inspection, Normal Range of Motion Neurologic/Psychiatric: Alert, No Motor/Sensory Deficits, Normal Mood/Affect Skin: Normal Color, Warm/Dry Results Results/Procedures Labs Laboratory Tests 09/30/21 19:10 10/01/21 05:50 Patient resulted labs reviewed. Imaging: Reviewed Imaging Report Imaging [facility], [place] NAME: LISSETT ZAYAS Adrian [facility] REC#: [id number] PT STATUS: REG ER : 1990 PHYSICIAN: BAILEY LONGORIA ADMIT DATE: 09/30/21/ER Signed Date of Exam:09/30/21 CT HEAD WO PROCEDURE: CT head without contrast. TECHNIQUE: Multiple contiguous axial images were obtained through the brain without the use of intravenous contrast. Auto Exposure Controls were utilized during the CT exam to meet ALARA standards for radiation dose reduction. INDICATION: Altered mental status. COMPARISON: 12/10/2013. FINDINGS: No intracranial hemorrhage, mass effect, hydrocephalus or extra-axial fluid collection. No CT evidence of a territorial infarction. Osseous structures are intact. Mild mucosal thickening in the right ethmoid sinuses. The mastoids are clear. Left globe prosthesis. IMPRESSION: No acute intracranial CT finding. Dictated by: Dictated on workstation # [id number] Dict: 09/30/212002 Trans: 09/30/212009 [facility] [id number] Interpreted by: TINA CHAO MD Electronically signed by: TINA CHAO MD 09/30/212009 Short Stay Diagnosis Discharge Diagnosis-Short Stay Admission Diagnosis AMS due to methamphetamine use Final Discharge Diagnosis AMS due to methamphetamine use Conclusion Plan AMS due to methamphetamine use Now resolved, A&Ox4 Recommended cessation of meth use transaction advisory services manager consulted, appreciate recs Has been in treatment in the past and recommended again I called and updated the office of Juliane Barragan NP (she is not in today so left message with her staff) Urinary retention After I left room pt complained of inability to urinate Bladder scan with 900ml in bladder Urinated last night in ER for urine studies Discussed with Dr Castelan who will facilitate close follow up as an outpatient Started on Flomax Advised to return to ER if unable to urinate Diagnosis/Problems Diagnosis/Problems (1) Altered mental status Status: Acute Qualifiers: Qualified Codes: R41.82 - Altered mental status, unspecified (2) Acute Meth Intoxication (3) Methamphetamine use Status: Acute (4) Urinary retention JOBY NEWTON MD Oct 01, 2021 11:45
[2021-10-01 11:47] VITALS: BP 120/59
[2021-10-01] MEDS ORDERED: IBUP-2473 PO (14:10)
[2021-10-01] MEDS ORDERED: CITA40TA11 PO (14:10)
[2021-10-01] MEDS ORDERED: LURA40TA3 PO (14:10)
[2021-10-01] MEDS ORDERED: BUSP15TA60 PO (14:10)
[2021-10-01] MEDS ORDERED: ATOM25CA5 PO (14:10)
[2021-10-01] MEDS ORDERED: DIPH25TA65 PO (14:10)
[2021-10-01 16:00] VITALS: BP 120/59
[2021-10-01 21:55] LABS: AMPHETAMINES URINE QUAL DS Positive (Negative); BARBITURATES URINE QUAL DS Negative (Negative); BENZODIAZEPINE URINE QUAL DS Negative (Negative)
== END 2021-10-01 16:00 | disposition home or self-care (01) ==
LOC: EDUNIT# 18:40 → ER 18:41 → 4TH 22:30
PROVIDERS: ADMIT Family Medicine; ATTEND Family Medicine
DX: R41.82 Altered mental status, unspecified (principal); F15.929 Other stimulant use, unspecified with intoxication, unspecified; R33.9 Retention of urine, unspecified; E86.0 Dehydration; Z79.899 Other long term (current) drug therapy; Z79.02 Long term (current) use of antithrombotics/antiplatelets; Z79.1 Long term (current) use of non-steroidal anti-inflammatories (NSAID); Z79.891 Long term (current) use of opiate analgesic
CPT/HCPCS: 70450; 80048; 80053; 80306; 80307; 81000; 85025 ×2; 93005; 99284; G0479; G0480 ×3; 36415; 80320; 80329; G0378

== ENCOUNTER 2021-11-06 20:23 | Emergency (ER) | payer MEDICAID ==
[~2021-11-06] VITALS: Ht 188 cm; Wt 79.4 kg
[2021-11-06 20:23] VITALS: BP 131/74
[~2021-11-06 20:23] MED LIST changes: +ATOM25CA5 PO; +BUSP15TA60 PO; +CITA40TA13 PO; +DIPH25TA65 PO; +IBUP-2473 PO; +LURA40TA3 PO; +TMSL.4C PO
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
[2021-11-06 20:53] LABS: AMPHETAMINE SCREEN, URINE POSITIVE (NEGATIVE); BARBITURATE SCREEN URINE NEGATIVE (NEGATIVE); BENZODIAZEPINES SCREEN URINE NEGATIVE (NEGATIVE); CANNABINOID SCREEN, URINE POSITIVE (NEGATIVE); COCAINE SCREEN URINE NEGATIVE (NEGATIVE); METHADONE STAT NEGATIVE (NEGATIVE); METHAMPHETAMINE SCREEN URINE S POSITIVE (NEGATIVE); OPIATE SCREEN URINE NEGATIVE (NEGATIVE); OXYCODONE STAT NEGATIVE (NEGATIVE); PROPOXYPHENE STAT NEGATIVE (NEGATIVE); TRICYCLIC ANTIDEPRESSANTS SCRE NEGATIVE (NEGATIVE)
[2021-11-06 20:57] LABS: BASOPHILS % (AUTO) 0 % (0-10); EOSINOPHILS # (AUTO) 0.1 10^3/uL (0.0-0.3); EOSINOPHILS % (AUTO) 1 % (0-10); HEMATOCRIT 38 % (40-54); HEMOGLOBIN 12.9 g/dL (13.3-17.7); LYMPHOCYTES # (AUTO) 2.6 10^3/uL (1.0-4.0); LYMPHOCYTES % (AUTO) 27 % (12-44); MEAN CORPUSCULAR HEMOGLOBIN 30 pg (25-34); MEAN CORPUSCULAR HGB CONC 34 g/dL (32-36); MEAN CORPUSCULAR VOLUME 86 fL (80-99); MEAN PLATELET VOLUME 9.2 fL (9.0-12.2); MONOCYTES # (AUTO) 0.9 10^3/uL (0.0-1.0); MONOCYTES % (AUTO) 10 % (0-12); NEUTROPHILS # (AUTO) 5.8 10^3/uL (1.8-7.8); NEUTROPHILS % (AUTO) 61 % (42-75); PLATELET COUNT 266 10^3/uL (130-400); WHITE BLOOD COUNT 9.4 10^3/uL (4.3-11.0)
[2021-11-06] MEDS ORDERED: ACYC30OI TP (20:57)
[2021-11-06] MEDS ORDERED: VALA10004 PO (20:57)
[2021-11-06] MEDS ORDERED: DOXY100T2 PO (20:57)
[2021-11-06 20:58] LABS: BILIRUBIN,URINE NEGATIVE (NEGATIVE); CLARITY,URINE CLEAR; COLOR,URINE YELLOW; GLUCOSE, URINE (UA) NEGATIVE (NEGATIVE); KETONES,URINE NEGATIVE (NEGATIVE); LEUKOCYTE ESTERASE ,URINE NEGATIVE (NEGATIVE); NITRITE,URINE NEGATIVE (NEGATIVE); PH,URINE 5.5 (5-9); PROTEIN,URINE NEGATIVE (NEGATIVE)
[2021-11-06] MEDS ORDERED: LIDOCAINE 1% INJ 20 ML 20 ML VIAL INJ ONE (21:00)
[2021-11-06] MEDS ORDERED: AZITHROMYCIN 250 MG TAB (ZITHROMAX) PO ONE (21:00)
[2021-11-06] MEDS ORDERED: cefTRIAXone 1,000 MG VIAL IM ONE (21:00)
[2021-11-06 21:06] LABS: ALBUMIN 4.1 GM/DL (3.2-4.5); POTASSIUM 4.1 MMOL/L (3.6-5.0)
[2021-11-06 21:07] LABS: CALCIUM 9.3 MG/DL (8.5-10.1)
[2021-11-06 21:08] LABS: TOTAL PROTEIN 6.8 GM/DL (6.4-8.2)
[2021-11-06 21:10] LABS: BILIRUBIN,TOTAL 0.3 MG/DL (0.1-1.0)
[2021-11-06 21:10] LABS: BACTERIA,URINE NEGATIVE /HPF
[2021-11-06 21:12] LABS: CREATININE SERUM 1.18 MG/DL (0.60-1.30)
[2021-11-07 21:37] LABS: HEPATITIS C ANTIBODY C Non-Reactive (Non-Reactive)
== END 2021-11-06 21:10 | disposition home or self-care (01) ==
LOC: EDUNIT# 20:23 → ER 20:24
DX: N48.5 Ulcer of penis (principal); F19.90 Other psychoactive substance use, unspecified, uncomplicated; F17.210 Nicotine dependence, cigarettes, uncomplicated
CPT/HCPCS: 36415; 80053; 80074; 80306; 81000; 85025; 86695; 86696; 86703; 86780; 87254; 87491; 87591

== ENCOUNTER 2022-06-23 17:11 | Emergency (ER) | payer MEDICAID, OTHER ==
[~2022-06-23] VITALS: Ht 187.9 cm; Wt 83.9 kg
[~2022-06-23 17:11] MED LIST changes: +ACYC30OI TP; +DOXY100T2 PO; +LURA40TA2 PO; -LURA40TA3 PO; +VALA10004 PO
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
[2022-06-23] MEDS ORDERED: CEPHALEXIN 250 MG (KEFLEX) CAP PO ONE (18:15)
[2022-06-23] MEDS ORDERED: DOXYCYCLINE 100 MG (VIBRAMYCIN) TABLET PO ONE (18:15)
[2022-06-23] MEDS ORDERED: DOXY100T2 PO (18:22)
[2022-06-23] MEDS ORDERED: CEPH500T PO (18:22)
[2022-06-23 18:31] VITALS: BP 128/85
== END 2022-06-23 18:30 | disposition home or self-care (01) ==
LOC: EDUNIT# 17:11 → ER 17:13
DX: S30.860A Insect bite (nonvenomous) of lower back and pelvis, initial encounter (principal); R22.41 Localized swelling, mass and lump, right lower limb; W57.XXXA Bitten or stung by nonvenomous insect and other nonvenomous arthropods, initial encounter
CPT/HCPCS: 99283